=== PATIENT | male | born 1965 | race Two or more races ===

== ENCOUNTER 2017-05-23 09:03 | Emergency (ER) | payer OTHER ==
[~2017-05-23] VITALS: Ht 167.6 cm; Wt 87.5 kg
[~2017-05-23 09:03] MED LIST: BENZ1TAB2 PO; ESCI20TA51 PO; INSUINJ37 SUBCUT; METF-371 PO; PHEN100C70 PO; PIO30T PO; RISP1TAB36 PO; RISP3TAB44 PO; TRAZ100T2 PO
[2017-05-23 10:14] LABS: Basophils # (auto) 0 uL; Basophils % (auto) 0.8 % (0.0-2.0); Eosinophils # (auto) 0 uL; Eosinophils % (auto) 0.9 % (0.0-7.0); Hematocrit 36.2 % (41.0-53.0); Hemoglobin 11.8 g/dL (13.5-17.5); Lymphocytes # (auto) 1.6 uL; Lymphocytes % (auto) 34.3 % (10.0-50.0); Mean Corpuscular Hemoglobin 27.7 pg (28.0-32.0); Mean Corpuscular Hgb Conc. 32.5 g/dL (32.0-36.0); Mean Corpuscular Volume 85.3 fL (80.0-100.0); Mean Platelet Volume 7.1 fL (6.9-10.8); Monocytes # (auto) 0.4 uL; Monocytes % (auto) 9.5 % (0.0-12.0); Neutrophils # (auto) 2.6 uL; Neutrophils % (auto) 54.5 % (37.0-80.0); Nucleated Red Blood Cells % 0.1 %; Platelet Count (auto) 256 10^3/uL (140-450); Red Cell Distribution Width 15.1 % (11.8-14.3); White Blood Cell 4.7 10^3/uL (4.4-10.8)
[2017-05-23 10:38] LABS: Albumin 3.1 g/dL (3.4-5.0); BUN/Creatinine Ratio 15.5; Bilirubin, Total 0.2 mg/dL (0.2-1.0); Calcium 7.9 mg/dL (8.5-10.1); Potassium 4.7 mmol/L (3.5-5.1); Total Protein 7.4 g/dL (6.4-8.2)
[2017-05-23] MEDS ORDERED: SODIUM CHLORIDE 0.9% 1,000 ML IV ONE (10:42)
[2017-05-23] MEDS ORDERED: cefTRIAXone 1GM/10ml IVPUSH 10 ML IV ONE (10:45)
[2017-05-23] MEDS ORDERED: IOHEXOL 300 MG/ML 100ML BOTTLE IJ ONE (11:45)
[2017-05-23 13:14] LABS: Urine RBC None Seen /hpf (0 - 3)
[2017-05-23 13:23] LABS: Urine Bilirubin Negative (Negative); Urine Blood Negative /uL (Negative); Urine Color Colorless (Yellow); Urine Glucose 2+ mg/dL (Normal); Urine Ketone Negative (Negative); Urine Nitrite Negative (Negative); Urine Urobilinogen Normal (Negative)
[2017-05-23 18:49] VITALS: BP 147/75
== END 2017-05-23 19:18 | disposition short-term general hospital (02) ==
LOC: ER 09:03
DX: T85.890A Other specified complication of nervous system prosthetic devices, implants and grafts, initial encounter (principal); L03.221 Cellulitis of neck; F20.9 Schizophrenia, unspecified; F79 Unspecified intellectual disabilities; J18.9 Pneumonia, unspecified organism; E44.1 Mild protein-calorie malnutrition; E11.65 Type 2 diabetes mellitus with hyperglycemia; G40.909 Epilepsy, unspecified, not intractable, without status epilepticus; I10 Essential (primary) hypertension; E11.9 Type 2 diabetes mellitus without complications; R51 Headache; Z68.31 Body mass index [BMI] 31.0-31.9, adult; Z87.820 Personal history of traumatic brain injury; Z79.4 Long term (current) use of insulin; Z79.899 Other long term (current) drug therapy
CPT/HCPCS: 36415; 70450; 70491; 71020; 80053; 81001; 83735; 84443; 85025; 87077; 87147; 87186; 87205; 96365; 99285; J7030; Q9967

== ENCOUNTER 2023-12-15 19:07 | Emergency (ER) | payer MEDICAID, OTHER ==
[~2023-12-15] VITALS: Ht 172.7 cm; Wt 80.0 kg
[~2023-12-15 19:07] MED LIST changes: -BENZ1TAB2 PO; +BENZ1TAB6 PO; +ESCI1TAB37 PO; -ESCI20TA51 PO; +PHEN100C PO; -PHEN100C70 PO; +TRAZ-228 PO; -TRAZ100T2 PO
[2023-12-15] MEDS: DEXTROSE (50%) 50ML SYRG IV ONE (19:45)
[2023-12-15] MEDS: DEXTROSE 50% SYRINGE 50 ML IV ONE (19:45)
[2023-12-15 20:19] LABS: Basophils # (auto) 0 10 ^3/uL (0-0.2); Basophils % (auto) 0.5 % (0.0-2.0); Eosinophils # (auto) 0.1 10 ^3/uL (0-0.8); Eosinophils % (auto) 1.9 % (0.0-7.0); Hematocrit 38.6 % (41.0-53.0); Hemoglobin 12.8 g/dL (13.5-17.5); Lymphocytes # (auto) 0.8 10 ^3/uL (0.4-5.4); Lymphocytes % (auto) 13.3 % (10.0-50.0); Mean Corpuscular Hemoglobin 30.2 pg (28.0-32.0); Mean Corpuscular Hgb Conc. 33.1 g/dL (32.0-36.0); Mean Corpuscular Volume 91.3 fL (80.0-100.0); Monocytes # (auto) 0.3 10 ^3/uL (0-1.3); Monocytes % (auto) 5.6 % (0.0-12.0); Neutrophils # (auto) 4.6 10 ^3/uL (1.6-8.6); Neutrophils % (auto) 78.7 % (37.0-80.0); Nucleated Red Blood Cells % 0.1 %; Red Blood Cells 4.23 10^6/uL (4.5-5.90); Red Cell Distribution Width 14.9 % (11.8-14.3); White Blood Cell 5.8 10^3/uL (4.4-10.8)
[2023-12-15 20:37] LABS: Alanine Aminotransferase 25 U/L (7-40); Albumin 4.3 g/dL (3.2-4.8); Alkaline Phosphatase 73 U/L (46-116); Anion Gap 7 (5-15); Aspartate Aminotransferase 26 U/L (13-40); BUN/Creatinine Ratio 11.4 (10.0-20.0); Blood Urea Nitrogen 10 mg/dL (9-23); Calcium 9.1 mg/dL (8.5-10.1); Carbon Dioxide 26 mmol/L (20-30); Chloride 102 mmol/L (98-107); Glucose 170 mg/dL (74-106); Potassium 3.4 mmol/L (3.5-5.1); Sodium 135 mmol/L (136-145)
[2023-12-15 20:38] LABS: Bilirubin, Total 0.3 mg/dL (0.2-1.0); Total Protein 7.1 g/dL (5.7-8.2)
[2023-12-15] MEDS ORDERED: ASPirin-EC 325mg tab PO ONE (21:15)
[2023-12-15] MEDS ORDERED: ENOXAPARIN SOD 80 MG/0.8ML SYRINGE SC ONE (21:15)
[2023-12-15 21:46] VITALS: O2SAT 96
[2023-12-15 22:22] LABS: INR 1.28 (0.9-1.15); Partial Thromboplastin Time 32.5 SEC (24.5-34.5); Prothrombin Time 13.3 sec (9.3-11.8)
[2023-12-15 23:30] VITALS: BP 105/48; PULSE 63; RESP 20; TEMP 97.8; O2SAT 97
== END 2023-12-15 23:37 | disposition home or self-care (01) ==
LOC: ER 19:07 → EDBD 19:07 → ER 23:37
DX: E11.649 Type 2 diabetes mellitus with hypoglycemia without coma (principal); E78.5 Hyperlipidemia, unspecified; I10 Essential (primary) hypertension; F20.9 Schizophrenia, unspecified; R56.9 Unspecified convulsions
CPT/HCPCS: 36415; 71045; 80053; 82962; 83735; 83880; 84484; 85025; 85610; 85730; 93005; 96374; 99285; J7042